=== PATIENT | female | born 1985 | race Native Hawaiian/Other Pacific Islander ===

== ENCOUNTER 2024-04-26 17:22 | Inpatient (IN) | payer OTHER ==
[~2024-04-26] VITALS: Ht 162.6 cm; Wt 94.7 kg
[2024-04-26] MEDS ORDERED: Aluminum Hydroxide 320MG/5ML 473 ML PO PRN (20:30)
[2024-04-26] MEDS ORDERED: Acetaminophen 325 MG TABLET PO PRN (20:30)
[2024-04-26] MEDS ORDERED: DiphenhydrAMINE HCl 50 MG Cap PO PRN (20:35)
[2024-04-26] MEDS ORDERED: Polyethylene Glycol 3350 17 gm PO PRN (20:35)
[2024-04-26] MEDS ORDERED: Calcium Carbonate 500 MG Tab Chew PO PRN (20:35)
[2024-04-26] MEDS ORDERED: Ondansetron 4 MG SoluTab MM PRN (20:35)
[2024-04-26] MEDS ORDERED: TraZODone HCl 50 MG Tab PO PRN (20:35)
[2024-04-26] MEDS ORDERED: DiphenhydrAMINE HCl 50 MG/ML 1ML Vial IV PRN (20:35)
[2024-04-26] MEDS ORDERED: Melatonin 3 MG Tab PO PRN (20:35)
[2024-04-26] MEDS ORDERED: FLU VACC TS2024-25(6MOS UP)/PF 45 MCG/0.5 ML SYRINGE IM ONE (20:40)
[2024-04-26] MEDS ORDERED: LORazepam 2 MG Tab PO PRN (20:40)
[2024-04-26] MEDS ORDERED: Ibuprofen 600 MG Tab PO PRN (20:40)
[2024-04-26] MEDS ORDERED: OLANZapine ODT 10 MG Tab MM PRN (20:40)
[2024-04-26 21:00] VITALS: BP 127/84
[2024-04-26] MEDS ORDERED: GABA400 PO (21:09)
[2024-04-26] MEDS ORDERED: OMEP20ER PO (21:11)
[2024-04-26] MEDS ORDERED: QUETIAPINE FUM400 M2 PO (21:12)
[2024-04-26] MEDS ORDERED: HYDPAM50 PO (21:14)
[2024-04-26] MEDS ORDERED: Zyprexa Zydis10 MG PO (21:16)
[2024-04-26] MEDS ORDERED: PRAZ5 PO (21:17)
[2024-04-26] MEDS ORDERED: NOVOLOG100 UNIT/2 INJ (21:49)
[2024-04-26] MEDS ORDERED: INSULANI INJ (21:51)
[2024-04-26] MEDS ORDERED: JARDIANCE10 MG PO (21:52)
[2024-04-26] MEDS ORDERED: Gabapentin 300 MG Cap PO ONE (21:55)
[2024-04-26] MEDS ORDERED: QUEtiapine Fumarate 200 MG Tab PO ONE (21:55)
[2024-04-26] MEDS ORDERED: Nicotine Polacrilex 2 MG Gum PO PRN (22:00)
[2024-04-26] MEDS ORDERED: Prazosin HCL 5 MG Cap PO ONE (22:00)
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
--- NOTE | 2024-04-27 05:53 | NUR ---
Patient slept intermittantly overnight requiring prn medication at 0200 which provided good relief from insomnia. She is alert and oriented and cooperative with care. No SI, HI or AVH upon admission. No complaints of pain or discomfort noted. Will continue close monitoring every 15 minutes for comfort and safety
[2024-04-27] MEDS ORDERED: Multivitamins 1 Tab PO SCH (09:00)
[2024-04-27 09:07] VITALS: BP 103/71
[2024-04-27] MEDS ORDERED: HydrOXYzine Pamoate 50 MG Cap PO PRN (14:55)
[2024-04-27] MEDS ORDERED: Insulin Human Lispro 100 Units/ML 3ML Syringe SC SCH (16:30)
--- NOTE | 2024-04-27 18:53 | NUR ---
SHIFT SUMMARY PT AA&OX4. PLEASANT AND COOPERATIVE WITH CARE. SPEECH AND EYE CONTACT APPROPRIATE. COMPLIANT WITH MEDS. DENIES ANY ADVERSE EFFECTS. UP WITH MILIEU AND GROUPS. MI REPORTS POOR SLEEP. MD NOTIFIED AND SLEEP MEDS INCREASED. INSULIN ORDERED AND GIVEN. PT DENIES ANY CURRENT NEEDS WILL CONTINUE POC
[2024-04-27] MEDS ORDERED: QUEtiapine Fumarate 200 MG Tab PO SCH (21:00)
[2024-04-27] MEDS ORDERED: Empagliflozin 25 MG TAB PO SCH (21:00)
[2024-04-27] MEDS ORDERED: TraZODone HCl 100 MG Tab PO SCH (21:00)
[2024-04-27] MEDS ORDERED: Gabapentin 300 MG Cap PO SCH (21:00)
[2024-04-27] MEDS ORDERED: Prazosin HCL 5 MG Cap PO SCH (21:00)
[2024-04-27 22:22] VITALS: BP 124/90
--- NOTE | 2024-04-28 05:49 | NUR ---
Patient is alert, oriented pleasant and cooperative with cares. She has had no Si,HI or AVH noted on assessment. Elizabeth's sleep continues to be extremely poor. She wakes approximately every 2 hours and has difficulty going back to sleep. At 0130, additional trazodone and melatonin were given without any noticeable result. Will continiue close observation every 15 minutes for comfort and safety
[2024-04-28 08:01] VITALS: BP 107/87
[2024-04-28] MEDS ORDERED: Omeprazole 20 MG CapCR PO SCH (09:00)
[2024-04-28] MEDS ORDERED: Insulin Glargine-Yfgn 100 Unit/mL 3 ML SYR SC SCH (09:00)
--- NOTE | 2024-04-28 16:47 | NUR ---
Shift Summary Pt A/O x4; pleasant and cooperative with care. She currently denies SI or HI. Pt endorses auditory hallucinations and say that she often hears voices of her family members. She has a hard time sleeping and will often wake up every hour. The pt says that this has been her norm for the last 15 years. She attended all groups today and actively participates in [employer] activities. She is monitored via Q15 rounding for safety.
[2024-04-28] MEDS ORDERED: TraZODone HCl 100 MG Tab PO SCH (21:00)
[2024-04-28] MEDS ORDERED: QUEtiapine Fumarate 300 MG Tab PO SCH (21:00)
[2024-04-28 21:09] VITALS: BP 123/87
--- NOTE | 2024-04-28 21:55 | NUR ---
PATIENT REFUSED CBG AND PM INSULIN TONIGHT. SHE REPORTS "I NEVER TAKE INSULIN AT NIGHT, IT MAKES ME SICK"
--- NOTE | 2024-04-29 03:27 | NUR ---
SHIFT SUMMARY: ASSUMED CARE FROM PRIOR SHIFT. PATIENT IS A/OX4, ABLE TO VOICE NEEDS AND HAVE MEANINGFUL CONVERSATION. SHE REFUSED HER INSULIN AND HER CBG STATING" I DON'T DO THAT IN THE EVENING BECAUSE IT MAKES ME SICK". SHE IS COMPLIANT WITH ALL PO/PRN MEDICATIONS. HE DENIES ANY CURRENT SI, VH OR AH. SHE IS UP EVERY 2 HRS WANTING HOT TEA SHE IS HAVING A VERY DIFFICULT TIME WITH SLEEP CYCLE. SHE IS CURRENTLY AWAKE AND STATES "I CAN'T SLEEP". HOT TEA GIVEN AGAIN. WE WILL CONTINUE TO MONITOR EVERY 15 MIN FOR COMFORT AND SAFETY.
--- NOTE | 2024-04-29 06:06 | NUR ---
PATIENT SLEPT 6.5 HRS WITH INTERUPTED SLEEP.
[2024-04-29 08:07] VITALS: BP 117/81
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
--- NOTE | 2024-04-29 16:53 | NUR ---
SHIFT SUMMARY: PT A/O X4. PLEASANT AND COOPERATIVE. PLEASE SEE PREVIOUS NOTE. PT IS TIRED AND WANTS TO SLEEP GOOD. BLOOD SUGARS [phone]. COVERED WITH INSULIN PER ORDER. BS [phone] PINEDA AND MESSAGE LEFT PER ORDER. VISTERAL GIVEN X 1, WAS ANXIOUS. DENIES SI, HI AND AVH. PT IS ACCEPTING TO GETTING HELP SHE IS FEARFUL SHE MAY DO METH AGAIN, ESPECIALLY AFTER "SHOOTING UP". SHE SAYS SHE FEELS "NUMB" WITH THIS METHOD. PT HAS BEEN AWAKE ,UP, AND INTERACTS WITH OTHERS THROUGH OUT THE DAY. WILL CONTINUE TO MONITOR
[2024-04-29 23:34] VITALS: BP 122/87
--- NOTE | 2024-04-30 01:00 | NUR ---
NOC SHIFT SUMMARY Pt was sitting in chair outside nurses' station at start of shift. Discussed med changes and glucose mgmt. Although glucose has been consistently elevated, she is not interested in HS insulin d/t concern for hypoglycemia overnight. Encouraged pt to discuss insulin scheduling with provider for better glucose control. Increase in Seroquel and Trazodone doses at HS to address interruptions in sleep. Denies difficulty falling asleep, but tends to wake up a few times throughout the night. Followed recommendation to avoid napping during the day and was exhausted by end of evening. Ate snack with peers, then retreated to bed. Cooperative with HS meds and HS glucose check (394). Declined scheduled insulin, but aware of reading. Observed to be sleeping after receiving meds. Monitoring for changes in sleep pattern overnight.
[2024-04-30 07:29] VITALS: BP 111/77
--- NOTE | 2024-04-30 13:28 | NUR ---
PT C/O INCREASED ANXIETY, STATES THAT SHE IS HEARING HER HUSBANDS VOICE IN HER HEAD. REQUESTED PRN AND MEDICATED PER EMAR. PT STATES THAT SHE IS FEELING "OFF". CBG CHECKED, 367. PT RETURNED TO THE DAY ROOM TO WATCH TV.
[2024-04-30] MEDS ORDERED: Empagliflozin 25 MG TAB PO SCH (14:00)
[2024-04-30] MEDS ORDERED: Magnesium Citrate 300 ML BTL PO PRN (14:20)
[2024-04-30 14:32] LABS: Hematocrit 39.1 % (33.0-51.0); Hemoglobin 13.1 g/dL (11.5-16.0); Mean Corpuscular HGB 29.4 pg (26.0-34.0); Mean Corpuscular HGB Conc 33.5 g/dL (31.5-36.5); Mean Corpuscular Volume 88 fL (80-100); Mean Platelet Volume 10.6 fL (9.1-12.4); Platelet Count 289 K/mm3 (150-400); RDW Coefficient Variation 12.6 % (11.7-14.2); RDW Standard Deviation 40.6 fL (35.1-46.3); Red Blood Cell Count 4.45 M/mm3 (3.80-5.20); White Blood Cell Count 6.55 K/mm3 (4.00-11.30)
[2024-04-30 15:08] LABS: Bun/Creatinine Ratio 23.1 (12.0-20.0); Calcium, Blood 8.7 mg/dL (8.5-10.1); Creatinine, Blood 0.69 mg/dL (0.40-1.00); Potassium, Blood 4.2 mmol/L (3.5-5.5)
[2024-04-30] MEDS ORDERED: Metoclopramide HCl 10 MG Tab PO SCH (16:30)
[2024-04-30] MEDS ORDERED: Insulin Human Lispro 100 Units/ML 3ML Syringe SC SCH (16:30)
--- NOTE | 2024-04-30 18:13 | NUR ---
SHIFT NOTE: PT WAS AWAKE AND COOPERATIVE WITH ALL MEALS, ACTIVITIES, AND GROUPS. SHE ENGAGED APPROPRIATELY WITH STAFF. SHE INFORMED THIS RN THAT HER NORMAL SLIDING SCALE WAS HIGHER THAN THE ONE WE HAD PRESCRIBED FOR HER. CONSULT WAS CALLED TO THE HOSPITALIST AND WAS GIVEN MEDIUM SLIDING SCALE INSTEAD OF LOW. SHE ALSO HAS A NEW PO MEDICATION FOR HER DM. SHE DENIES ANY SI/HI/VH BUT STATES SHE CAN STILL HEAR THE VOICES BUT THEY WERE VERY LOW TODAY. SHE WAS COOPERATIVE WITH ALL HER MEDICATIONS. SHE SPOKE TO HER DAUGHTER ON THE PHONE THIS EVENING.
[2024-04-30] MEDS ORDERED: Docusate Sodium/Senna 1 Tab PO SCH (21:00)
[2024-04-30] MEDS ORDERED: QUEtiapine Fumarate 200 MG Tab PO SCH (21:00)
[2024-04-30 23:20] VITALS: BP 118/98
--- NOTE | 2024-05-01 06:09 | NUR ---
NOC SHIFT SUMMARY Hospitalist consult on day shift resulted in changes to diabetes med regimen. Insulin was discontinued at HS to align with pt's home schedule. Seroquel dose was reduced to 500 mg from 600 mg to alleviate grogginess. Pt was still noted to be drowsy and waking frequently, as she had on previous nights. Peer was disruptive around 0000, so unclear if the Seroquel is impacting her sleep. Improvement in AH. Social with peer at end of shift. Reading in sensory room. No additional concerns verbalized this shift.
--- NOTE | 2024-05-01 17:22 | NUR ---
SHIFT NOTE: PT DENIES SI/HI/VH. STATES SHE STILL HEARS FAINT VOICES BUT THEY ARE SOFT AND NOT TELLING HER TO HURT HERSELF. SHE WAS COMPLIANT WITH ALL MEDICATIONS. CBG'S RAN IN THE HIGH RANGE EVEN WITH MEDIUM S/S MEDICATION. AFTER THIS RN OBSERVED HER FIRST TWO MEALS AND SPOKE TO THE [facility], IT WAS NOTICED THAT PT WAS CONSUMING LARGE AMOUNTS OF SUGAR PACKETS IN HER TEA AND COFFEE AND WAS NOT EATIN A DIABETIC DIET. SHE WAS CONSUMING EXTRA PUDDINGS AT SNACK ALSO. MD NOTIFIED AND PT NOW PLACED ON CONSISTANT CARB DIET. PT INFORMED AND EDUCATED ON ADA APPROPRIATE SNACKS THAT ARE AVAILABLE AND PT STATES UNDERSTANDING. SHE WAS GIVEN PRN ZOFRAN FOR NAUSEA IN THE EVENING AND PRN VISTARIL FOR ANXIETY. SHE INTERACTED WITH PEERS APPROPRIATELY DURING THE DAY AND RESTED IN HER ROOM AFTER PRN MEDS BUT WAS UP FOR DINNER.
--- NOTE | 2024-05-01 20:35 | NUR ---
Patient states she feels like she has the flu when she first wakes up around 0400 in the morning. States sleeping is much better except for that. will continue close monoitoring for safety and comfort.
[2024-05-01 22:00] VITALS: BP 116/78
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
[2024-05-02 08:02] VITALS: BP 111/73
[2024-05-02] MEDS ORDERED: Insulin Glargine-Yfgn 100 Unit/mL 3 ML SYR SC SCH (09:00)
[2024-05-02] MEDS ORDERED: OLANZapine 10 MG Tab PO PRN (11:45)
--- NOTE | 2024-05-02 17:00 | NUR ---
SHIFT SUMMARY: PT ALERT, ORIENTED AND COOPERATIVE WITH CARE. PT DENIES SI OR HI. ENGAGED IN UNIT MILIEU, MEALS AND GROUPS. PT MEDICATED WITH PRN PER EMAR FOR C/O HEARING VOICES IN THE AFTERNOON. STATED LATER THAT THE MEDICATION HELPED BUT SHE WAS NOT ABLE TO GET ANY SLEEP. COMPLIANT WITH MEDICATIONS AND CONVERSIVE WITH STAFF. NO ACUTE CHANGES THROUGHOUT THE SHIFT.
[2024-05-02 20:40] VITALS: BP 121/76
--- NOTE | 2024-05-03 03:34 | NUR ---
Patient is alert and oriented and pleasant cira cooperative with care. She was able to sleep without interruption for approximately 5 hours this evening before waking. She did state that she has not had any nightmares overnight. At 0330, she was up again, and PRN 50mg trazodone and 3mg melatonin. No SI,HI or AVH tonight during assessment
[2024-05-03 08:10] VITALS: BP 117/80
[2024-05-03] MEDS ORDERED: Insulin Glargine-Yfgn 100 Unit/mL 3 ML SYR SC SCH (09:00)
--- NOTE | 2024-05-03 12:00 | NUR ---
Pt Discharge Info Per RN Request Patient has ride confirmed for Discharge from [facility]. Pickup time is at 8am 05/04/24. Patient is returning back to home in [place]. Will update RN on Status.
--- NOTE | 2024-05-03 12:31 | NUR ---
Pt Discharge Appointment Pt is set up with [facility] in [place]. Called to request an apt be set up for hospital discharge. Left voicemail with Janeth to return call to get this scheduled let them know that pt is discharging tomorrow at 8am. Will update caregivers homecare of this status.
--- NOTE | 2024-05-03 16:34 | NUR ---
SHIFT SUMMARY PT A/O X4; PLEASANT AND COOPERATIVE WITH CARE. SHE DENIES SI, HI, OR ANY HALLUCINATIONS. PT REPORTS THAT SHE IS DOING WELL AND HAS BEEN SLEEPING THROUGH THE NIGHT MUCH BETTER. PT INTERACTS WITH PEER AND ATTENDS ALL GROUPS/MEALS. PT TO DC HOME TOMORROW. SHE HAS TRANSPORT ARRANGED FOR 8 AM ON 05/04/23. PT CONTINUES TO BE MONITORED VIA Q15 ROUNDING FOR SAFETY.
[2024-05-03 20:56] VITALS: BP 121/88
--- NOTE | 2024-05-04 04:05 | NUR ---
Patient had a good evening in the milieu. Very excited about discharge in the morning. Elizabeth is alert and oriented, pleasant and cooperative with care. No SI,HI or AVH noted on evening assessment. Will continue close monitoring every 15 minutes for safety and comfort
[2024-05-04] MEDS ORDERED: JARDIANCE25 MG PO (07:15)
[2024-05-04] MEDS ORDERED: INSULANI (07:18)
[2024-05-04] MEDS ORDERED: NICO2 PO (07:20)
[2024-05-04] MEDS ORDERED: QUET100 PO (07:20)
[2024-05-04] MEDS ORDERED: Trazodone HCl300 MG PO (07:21)
[2024-05-04] MEDS ORDERED: Insulin Glargine-Yfgn 100 Unit/mL 3 ML SYR SC SCH (08:00)
[2024-05-04] MEDS ORDERED: NOVOLOG FL100 UNIT/3 SC (08:08)
[2024-05-04] MEDS ORDERED: BASAGLAR K100 UNIT/1 SC (08:09)
--- NOTE | 2024-05-04 08:26 | NUR ---
Patient Discharge Pt medications faxed to [facility] in [place], [place]. Verbal orders received for med rec edit to change long and short acting insulin to reflect what patient was getting while in hospital. Discharge instructions gone over with patient and she is to follow up with her PCP and [facility]. Pt to make appointments and is capable of doing so. Pt has no complaints at this time. Belongings returned and pt picked up by transport to go back home.
== END 2024-05-04 08:27 | disposition home or self-care (01) | DRG 885 ==
LOC: BHU 17:22
PROVIDERS: Internal Medicine; ADMIT Psychiatry & Neurology Psychiatry
DX: F25.0 Schizoaffective disorder, bipolar type (principal); R45.851 Suicidal ideations; F15.20 Other stimulant dependence, uncomplicated; F11.10 Opioid abuse, uncomplicated; K59.00 Constipation, unspecified; F12.10 Cannabis abuse, uncomplicated; E11.43 Type 2 diabetes mellitus with diabetic autonomic (poly)neuropathy; K59.09 Other constipation; K31.84 Gastroparesis; F17.210 Nicotine dependence, cigarettes, uncomplicated; Z98.51 Tubal ligation status; Z98.890 Other specified postprocedural states; Z88.8 Allergy status to other drugs, medicaments and biological substances; Z88.5 Allergy status to narcotic agent; Z79.4 Long term (current) use of insulin; Z79.899 Other long term (current) drug therapy; Z85.89 Personal history of malignant neoplasm of other organs and systems; Z87.59 Personal history of other complications of pregnancy, childbirth and the puerperium; Z71.6 Tobacco abuse counseling
CPT/HCPCS: 36415; 80048; 82947; 83036; 85027; 90656; A9270; J1815